=== PATIENT | male | born 1995 | race American Indian/Alaskan Native ===

== ENCOUNTER 2018-09-15 08:39 | Emergency (ER) | payer OTHER ==
[2018-09-15 08:45] VITALS: BP 134/81
[2018-09-15] MEDS ORDERED: XYLOCAINE 2% INFILTRATI ONE ×2 (09:00→09:04)
--- NOTE | 2018-09-15 09:03 | Emergency Department Report ---
ED Laceration HPI - HPI Chief Complaint: Wound/Laceration Stated Complaint: LAC TO RT LEG Time Seen by Provider: 09/15/18 09:01 Occurred When: Today Location: Lower Extremity Severity: mild Tetanus Status: Up to Date Laceration Symptoms: No Foreign Body Sensation, No Numbness, No Weakness, No Pain Other History: pt to ER p hitting his RLE on piece of metal this AM at home. bleeding controlled. tdap utd. ED Review of Systems ROS: Stated complaint: LAC TO RT LEG Other details as noted in HPI Comment: All other systems reviewed and negative ED Past Medical Hx - Past Medical History Previous Medical History?: No - Surgical History Past Surgical History?: No - Social History Smoking Status: Current Some Day Smoker Substance Use Type: None Laceration Physical Exam - Exam General: Vital signs noted. No distress. Alert and acting appropriately. Laceration Location: Lower Extremity Laceration Exam: Yes Normal Distal CMS, No Foreign Body, No Exposed Tendon, Vessel, or Nerve, No Tendon Injury ED Course Vital Signs 09/15/18 08:43 Temperature 98.3 F Pulse Rate 67 Respiratory 16 Rate Blood Pressure 134/81 O2 Sat by Pulse 100 Oximetry - Laceration /Wound Repair rle Wound Location: lower extremity Wound Length (cm): 2 Wound's Depth, Shape: superficial Wound Explored: clean Irrigated w/ Saline (ccs): 50 Betadine Prep?: Yes Anesthesia: 1% Lidocaine Volume Anesthetic (ccs): 2 Wound Debrided: minimal Wound Repaired With: sutures Suture Size/Type: 4:0 Number of Sutures: 3 Layer Closure?: No Sterile Dressing Applied?: Yes Progress: tolerated well ED Medical Decision Making - Medical Decision Making simple lac wound cleaned tdap utd avulsion wound of rle repaired and dressed with non adh dressing dc home with dc plan of care and follow up for suture removal Vital Signs 09/15/18 08:43 Temperature 98.3 F Pulse Rate 67 Respiratory 16 Rate Blood Pressure 134/81 O2 Sat by Pulse 100 Oximetry Critical care attestation.: If time is entered above; I have spent that time in minutes in the direct care of this critically ill patient, excluding procedure time. ED Disposition Clinical Impression: Laceration Disposition: DC-01 TO HOME OR SELFCARE Is pt being admited?: No Does the pt Need Aspirin: No Condition: Stable Instructions: Suture Care (ED), Laceration (ED) Additional Instructions: DIET TOLERATED MEDS ORDERED TODAY IN ER FOLLOW INSTRUCTIONS ON THE BOTTLE FOLLOW UP PCP WITHIN 48 HOURS TO ENSURE YOU ARE GETTING BETTER ACTIVITY TOLERATED MOTRIN OR TYLENOL FOR PAIN OR FEVER RETURN TO THE ER FOR WORSENING SYMPTOMS NOT RELIEVED BY YOUR MEDICATIONS. Referrals: [facility] [Outside] - 3-5 Days Time of Disposition: 09:02
== END 2018-09-15 09:40 | disposition home or self-care (01) ==
LOC: ED 08:39
DX: S81.811A Laceration without foreign body, right lower leg, initial encounter (principal); F17.200 Nicotine dependence, unspecified, uncomplicated; W22.8XXA Striking against or struck by other objects, initial encounter; Y93.89 Activity, other specified; Y92.89 Other specified places as the place of occurrence of the external cause; Y99.8 Other external cause status
CPT/HCPCS: 99282